=== PATIENT | female | born 1945 | race Caucasian/White ===

== ENCOUNTER 2020-12-30 18:29 | Emergency (ER) | payer MEDICARE ==
[2020-12-30] MEDS ORDERED: HYDROmorphone 1 MG/ML CARPUJECT IVP STA (18:51)
--- NOTE | 2020-12-30 18:55 | ED Physician Documentation ---
History of Present Illness - Stated complaint Stated Complaint: BACK PX - Chief complaint Chief Complaint: Back Pain - Additonal information Additional information: 75-year-old female presents emergency department with 3 days of acute mid tho racic back pain that was unprovoked by fall or trauma. She does report a history of low back pain but nothing similar to this. She reports that the pain radiates across her back and into the anterior chest, Tylenol as well as Percocet with minimal relief of the pain. she denies shortness of breath. She has been taking ibuprofen, tylenol and percocet with minimal relief of pain. Patient reports that with certain movements she feels a sharp pain that then begins to spasm across her entire back with radiation to the chest. Patient reports that she is taking the Percocet because she had a number of teeth extracted 4 days ago. No cough, no fevers, no falls or trauma. No peluritic component to pain pmh: HTN, depression meds: Sertraline, bupropion, omeprazole, hydrochlorothiazide, lisinopril, Percocet, ibuprofen. Review of Systems Constitutional: denies: Fever, Chills Eyes: reports: Reviewed and negative Ears: reports: Reviewed and negative Nose: reports: Reviewed and negative Throat: reports: Dental pain / toothache (recent dental extractions) Cardiac: denies: Chest pain / pressure, Palpitations, Pedal edema, Calf pain Respiratory: denies: Dyspnea, Cough GI: denies: Abdominal Pain, Nausea, Vomiting : denies: Dysuria, Frequency, Hesitancy Skin: denies: Rash, Lesions Musculoskeletal: reports: Back pain Neurologic: denies: Generalized weakness, Focal weakness, Numbness, Difficulty speaking, Syncope, Seizure, Confused, Head injury, LOC PD PAST MEDICAL HISTORY - Past Medical History Cardiovascular: None Respiratory: None Neuro: None Endocrine/Autoimmune: None GI: None 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 HEENT: None Psych: Depression Musculoskeletal: None Derm: None - Past Surgical History Past Surgical History: Yes - Present Medications Home Medications: Ambulatory Orders Medication Instructions Recorded Confirmed Hydrochlorothiazide 12/17/14 12/17/14 Lisinopril [Prinivil] 10 mg PO DAILY #30 tablet 04/19/20 Ibuprofen [Motrin] 600 mg PO Q6H PRN #30 tab 12/30/20 Omeprazole Magnesium 20 mg PO DAILY 12/30/20 12/30/20 Oxycodone HCl/Acetaminophen 1 - 2 each PO Q6H PRN #14 tab 12/30/20 [Percocet 5-325 mg Tablet] Sertraline HCl 150 mg PO DAILY 12/30/20 12/30/20 Tizanidine HCl [Zanaflex] 2 mg ORAL DAILY PRN 12/30/20 12/30/20 Tizanidine HCl [Zanaflex] 2 mg PO BID PRN #15 12/30/20 buPROPion HCL [Bupropion HCl Sr] 150 mg PO BID 12/30/20 12/30/20 - Allergies Allergies/Adverse Reactions: Allergies Allergy/AdvReac Type Severity Reaction Status Date / Time adhesive Allergy Rash Verified 12/30/20 18:31 Penicillins Allergy Hives Verified 12/30/20 18:31 - Social History Does the pt smoke?: Yes Smoking Status: Current every day smoker Does the pt drink ETOH?: Yes - Immunizations Immunizations are current?: Yes PD ED PE EXPANDED - General General: Alert, Anxious, In Pain - Neck Neck: Supple w/out meningeal sx. No: Adenopathy, Soft tissue TTP, Bony TTP, Limited ROM - Cardiac Cardiac: Regular Rate, Regular Rhythm, Radial strong equal, Pedal strong equal, Cap refill < 2 sec. No: Murmur Present - Respiratory Respiratory: Clear to ausultation nikki. No: Distress, Labored - Abdomen Abdomen: Normal Bowel sounds. No: Tender to palpation - Back Back: Vertebral tenderness (Lower midline thoracic spinous tenderness without crepitus erythema. no steopoff, no deformity. Reduced range of motion secondary to pain. Patient able to take full deep breaths normal cardiopulmonary excursion.). No: CVA TTP right, CVA TTP left - Derm Derm: Normal color, Warm and dry. No: Rash, Petecchiae, Purpura - Neuro Neuro: Alert and Oriented X 3, CNII-XII intact - GCS Eye Opening: Spontaneous Motor: Obeys Commands Verbal: Oriented Total: 15 Results - Vitals Vitals: Vital Signs - 24 hr 12/30/20 18:31 Temperature 36.5 C Heart Rate 90 Respiratory 16 Rate Blood Pressure 138/100 H O2 Saturation 100 Oxygen O2 Source Room air - EKG (time done) 1854 Rate: Rate (enter#) (83) Rhythm: NSR [place]: Normal Intervals: Normal VT QRS: LVH Ischemia: Normal ST segments Compare to prior EKG: Old EKG unavailable Computer interpretation: Agree with computer - Labs Labs: Laboratory Tests 12/30/20 12/30/20 12/30/20 19:01 19:01 19:01 WBC 7.0 RBC 3.38 L Hgb 11.3 L Hct 35.0 L MCV 103.6 H MCH 33.4 H MCHC 32.3 RDW 12.1 Plt Count 331 MPV 9.9 Neut # (Auto) 4.9 Lymph # (Auto) 1.2 L [place] # (Auto) 0.7 Eos # (Auto) 0.2 Baso # (Auto) 0.1 Absolute Nucleated RBC 0.00 Nucleated RBC % 0.0 Sodium 135 Potassium 4.5 Chloride 97 L Carbon Dioxide 29 Anion Gap 9.0 BUN 32 H Creatinine 1.4 H Estimated GFR (MDRD) 37 L Glucose 114 H Calcium 9.8 Total Bilirubin 0.5 AST 18 ALT 14 Alkaline Phosphatase 89 Troponin I High Sens 5.0 Total Protein 6.5 L Albumin 4.2 Globulin 2.3 Albumin/Globulin Ratio 1.8 Lipase 28 - Rads (name of study) CXR Radiology: Final report received (No acute cardiopulmonary process) CT thoracic spine Radiology: Final report received PD MEDICAL DECISION MAKING - ED course Complexity details: reviewed results, re-evaluated patient, considered differential, d/w patient ED course: 75-year-old female presents to the emergency department for evaluation of 3 days mid thoracic back pain that radiates to her anterior chest. No cough or fevers. Chest x-ray shows no acute focal abnormality. She denies a pleuritic component to the chest pain. EKG nonischemic. High-sensitivity troponin also negative. Low suspicion for ACS. She denied any falls or trauma but pain was reproducible with palpation of the mid thoracic spine. A CT of the thoracic spine was completed and it does show anterior wedge compression fractures at T9 and L1. Undetermined age. Findings were discussed with the patient. Her pain is improved following 1.5 mg of Dilaudid IM here in the emergency department. Patient will be discharged with a prescription for ibuprofen, limited amount of Percocet as well as a pr escription for tizanidine. She is recommended to follow-up closely with her primary care provider. Referral to spine physiatry or evaluation for vertebral plasty in the future may be warranted. Patient reports primary care providers through the [facility] and she feels comfortable with follow-up there. Emergent return precautions were discussed. Departure - Departure Disposition: 01 Home, Self Care Clinical Impression: Wedge compression fracture of T9 vertebra Qualifiers: Encounter type: initial encounter Fracture type: closed Qualified Code(s): S22.070A - Wedge compression fracture of T9-T10 vertebra, initial encounter for closed fracture Wedge compression fracture of L1 vertebra Qualifiers: Encounter type: initial encounter Fracture type: closed Qualified Code(s): S32.010A - Wedge compression fracture of first lumbar vertebra, initial encounter for closed fracture Condition: Stable Record reviewed to determine appropriate education?: Yes Instructions: ED Fx Comp Vertebral Follow-Up: Samuel Diego MD [Primary Care Provider] - Prescriptions: Ibuprofen [Motrin] 600 mg PO Q6H PRN #30 tab PRN Reason: Pain Oxycodone HCl/Acetaminophen [Percocet 5-325 mg Tablet] 1 - 2 each PO Q6H PRN #14 tab PRN Reason: pain Tizanidine HCl [Zanaflex] 2 mg PO BID PRN #15 PRN Reason: Spasms Comments: Kristin you were seen for back pain today in the emergency department. Your EKG, chest x-ray and labs are all essentially unremarkable. We did do a CAT scan of your thoracic spine and did find that at T9 and L1 you do have small compression fractures. We are unable to determine from this imaging how old these are. It is important that you continue to follow-up with your primary care doctors at the [facility]. You may benefit from referral to a doctor or surgeon. I have prescribed a limited amount of Percocet for pain. I have also prescribed tizanidine which is a muscle relaxer. Please use both these medications very cautiously. They may make you dizzy sleepy and more prone to falls. Please drink a wall a lot of water when taking them as they are also constipating. Return to the emergency department if you have falls, weakness in your arms or legs cannot catch her breath or feel that the pain is worsening.
[2020-12-30] MEDS ORDERED: HYDROmorphone 1 MG/ML CARPUJECT IM STA ×2 (18:58→19:29)
[2020-12-30 19:10] LABS: BASOPHILS # (AUTO) 0.1 10^3/uL (0.0-0.1); EOSINOPHILS # (AUTO) 0.2 10^3/uL (0.0-0.7); EOSINOPHILS % (AUTO) 2.6 %; HGB - HEMOGLOBIN 11.3 g/dL (12.0-16.0); LYMPHOCYTES # (AUTO) 1.2 10^3/uL (1.5-3.5); LYMPHOCYTES % (AUTO) 16.5 %; MEAN CORPUSCULAR HEMOGLOBIN 33.4 pg (27.0-31.0); MEAN CORPUSCULAR HGB CONC 32.3 g/dL (32.0-36.0); MEAN CORPUSCULAR VOLUME 103.6 fL (81.0-99.0); MEAN PLATELET VOLUME 9.9 fL (7.9-10.8); MONOCYTES # (AUTO) 0.7 10^3/uL (0.0-1.0); MONOCYTES % (AUTO) 10.5 %; NEUTROPHILS # (AUTO) 4.9 10^3/uL (1.5-6.6); NEUTROPHILS % (AUTO) 69.1 %; PLT - PLATELET COUNT 331 10^3/uL (130-450); RED BLOOD COUNT 3.38 10^6/uL (4.20-5.40); RED CELL DISTRIBUTION WIDTH 12.1 % (12.0-15.0)
--- NOTE | 2020-12-30 19:28 | XRAY Report ---
PROCEDURE: Chest 1 View X-Ray INDICATIONS: chest pain TECHNIQUE: One view of the chest was acquired. COMPARISON: None. FINDINGS: Surgical changes and devices: None. Lungs and pleura: No pleural effusions or pneumothorax. Lungs are clear except for minimal intersti tial prominence. Mediastinum: Mediastinal contours appear normal. Heart size is normal. Bones and chest wall: No suspicious bony lesions. Overlying soft tissues appear unremarkable. IMPRESSION: No source of chest pain is seen. Minimal interstitial prominence incidentally noted. Reviewed by: Domingo Goodrich MD on 12/30/2020 7:27 PM PST Approved by: Domingo Goodrich MD on 12/30/2020 7:27 PM PST Station ID: [id number]
--- NOTE | 2020-12-30 19:35 | CT Report ---
PROCEDURE: THORACIC SPINE WO INDICATIONS: acute mid back pain TECHNIQUE: Noncontrast 3 mm thick sections acquired through the region of interest in the thoracic spine. Sagit natalya and coronal reformats were then constructed. For radiation dose reduction, the following was used : automated exposure control, adjustment of mA and/or kV according to patient size. COMPARISON: None. FINDINGS: Image quality: Excellent. Bones: There is mildly kyphotic bony alignment, in addition to mild scoliosis at the thoracolumbar j unction. A prior anterior fusion plate is noted at the low cervical spine.. No definite acute verteb ral body compression fractures but there is a small degree of anterior wedging of the T9 and L1 verte bral bodies. No suspicious sclerotic or lytic bony lesions. Central spinal canal is of normal overa ll caliber. Soft tissues: No paravertebral masses or hematomas. Visualized posteromedial lungs appear clear. IMPRESSION: Minimal T9 and mild L1 anterior wedge compression fractures, chronicity uncertain. No sign of disciti s or osteomyelitis. No displaced fracture found. 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 Reviewed by: Domingo Goodrich MD on 12/30/2020 7:33 PM PST Approved by: Domingo Goodrich MD on 12/30/2020 7:33 PM PST Station ID: [id number]
[2020-12-30 19:37] LABS: ALBUMIN 4.2 g/dL (3.2-5.5); ALBUMIN/GLOBULIN RATIO 1.8 (1.0-2.2); BILIRUBIN,TOTAL 0.5 mg/dL (0.2-1.0); CALCIUM 9.8 mg/dL (8.5-10.3); CREATININE 1.4 mg/dL (0.4-1.0); TOTAL PROTEIN 6.5 g/dL (6.7-8.2)
[2020-12-30 20:08] VITALS: BP 153/62
== END 2020-12-30 20:48 | disposition home or self-care (01) ==
LOC: ED 18:29
DX: S22.070A Wedge compression fracture of T9-T10 vertebra, initial encounter for closed fracture (principal); S32.010A Wedge compression fracture of first lumbar vertebra, initial encounter for closed fracture; X58.XXXA Exposure to other specified factors, initial encounter; I10 Essential (primary) hypertension; F17.200 Nicotine dependence, unspecified, uncomplicated
CPT/HCPCS: 36415; 71045; 72128; 80053; 83690; 84484; 85025; 93005; 96372; 99284; J1170

== ENCOUNTER 2021-01-06 12:04 | Emergency (ER) | payer MEDICARE ==
--- NOTE | 2021-01-06 12:41 | ED Physician Documentation ---
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 She was actually seen for it but a week ago but the work-up was really more on her back them on her abdomen because that is where the pain was focused then. Now it is definitely more epigastric and radiating to either side. It does worsen shortly after eating but she does not notice any specific food that makes it worse. She has had nausea and diarrhea with this as well. She wonders if her H. pylori might be back. She is on Prilosec, 20 mg twice a day. 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 HEENT: None Psych: Depression Musculoskeletal: None Derm: None - Past Surgical History Past Surgical History: Yes - Present Medications Home Medications: Ambulatory Orders Medication Instructions Recorded Confirmed Hydrochlorothiazide 25 mg PO DAILY 12/17/14 01/06/21 Lisinopril [Prinivil] 10 mg PO DAILY #30 tablet 04/19/20 01/06/21 Ibuprofen [Motrin] 600 mg PO Q6H PRN #30 tab 12/30/20 01/06/21 Omeprazole Magnesium 20 mg PO DAILY 12/30/20 01/06/21 Oxycodone HCl/Acetaminophen 1 - 2 each PO Q6H PRN #14 tab 12/30/20 01/06/21 [Percocet 5-325 mg Tablet] Sertraline HCl 150 mg PO DAILY 12/30/20 01/06/21 Tizanidine HCl [Zanaflex] 2 mg ORAL DAILY PRN 12/30/20 01/06/21 Tizanidine HCl [Zanaflex] 2 mg PO BID PRN #15 12/30/20 01/06/21 buPROPion HCL [Bupropion HCl Sr] 150 mg PO BID 12/30/20 01/06/21 ARIPiprazole [Abilify Mycite] 1 tab PO DAILY 01/06/21 01/06/21 Bismuth Subsalicylate 262 mg PO QID 14 Days #56 tab.chew 01/06/21 [Pepto-Bismol] Oxycodone HCl/Acetaminophen 1 - 2 each PO Q6H PRN #20 tab 01/06/21 [Percocet 5-325 mg Tablet] Tetracycline HCl 500 mg PO QID 14 Days 01/06/21 metroNIDAZOLE [Flagyl] 250 mg PO Q6H 14 Days 01/06/21 - Allergies Allergies/Adverse Reactions: Allergies Allergy/AdvReac Type Severity Reaction Status Date / Time adhesive Allergy Rash Verified 01/06/21 12:18 Penicillins Allergy Hives Verified 01/06/21 12:18 - Social History Does the pt smoke?: Yes Smoking Status: Current every day smoker Does the pt drink ETOH?: Yes Does the pt have substance abuse?: No - Immunizations Immunizations are current?: Yes - POLST Patient has POLST: No PD ED PE NORMAL - Vitals Vital signs reviewed: Yes - General General: Alert and oriented X 3, No acute distress - HEENT HEENT: PERRL, EOMI - Neck Neck: Supple, no meningeal sign, No bony TTP - Cardiac Cardiac: RRR, No murmur - Respiratory Respiratory: No respiratory distress, Clear bilaterally - Abdomen Abdomen: Other (She is tender in the epigastrium and left upper quadrant without surgical signs) - Back Back: No CVA TTP, No spinal TTP - Derm Derm: Normal color, Warm and dry - Extremities Extremities: No edema, No calf tenderness / cord - Neuro Neuro: Alert and oriented X 3, Normal speech Results - Vitals Vitals: Vital Signs - 24 hr 01/06/21 01/06/21 12:13 13:51 Temperature 36.6 C Heart Rate 82 82 Respiratory 20 24 Rate Blood Pressure 107/65 144/70 H O2 Saturation 100 99 Oxygen O2 Source Room air - EKG (time done) 1239 Rate: Rate (enter#) (73) Rhythm: NSR [place]: Normal Intervals: Normal [place] QRS: Normal Ischemia: Other (mild anterior JPE with concave sub-mm SHAHRAM). No: ST elevation c/w ischemia Computer interpretation: Agree with computer - Labs Labs: Laboratory Tests 01/06/21 01/06/21 01/06/21 12:45 12:45 12:45 WBC 5.8 RBC 3.02 L Hgb 10.2 L Hct 31.2 L MCV 103.3 H MCH 33.8 H MCHC 32.7 RDW 11.9 L Plt Count 320 MPV 9.8 Neut # (Auto) 4.3 Lymph # (Auto) 0.8 L [place] # (Auto) 0.5 Eos # (Auto) 0.2 Baso # (Auto) 0.1 Absolute Nucleated RBC 0.00 Nucleated RBC % 0.0 Sodium 140 Potassium 4.3 Chloride 100 L Carbon Dioxide 27 Anion Gap 13.0 BUN 32 H Creatinine 1.6 H Estimated GFR (MDRD) 32 L Glucose 99 Calcium 9.8 Total Bilirubin 0.5 AST 20 ALT 12 Alkaline Phosphatase 62 Troponin I High Sens 5.3 Total Protein 6.6 L Albumin 3.9 Globulin 2.7 Albumin/Globulin Ratio 1.4 Lipase 21 L PD MEDICAL DECISION MAKING - ED course ED course: 75-year-old woman with epigastric pain radiating to the back. Differential diagnosis is broad. Ulcer disease and H. pylori are definitely on the list. Gallbladder disease is less likely, no focal right upper quadrant tenderness or Garcia sign. Vascular emergencies are on the list including AAA and dissection. More likely AAA given the location. Also atypical CA is considered. Will obtain IV access, labs including troponin and a CT of the abdomen with IV contrast. She declines pain medication on initial evaluation. Work-up here demonstrates modest anemia, a little worse than last week, mild renal dysfunction. Basically negative CAT scan. Presume peptic ulcer disease and potentially recurrent H. pylori. She would like to go ahead with presumptive treatment for same. Noting penicillin allergy she was started on bismuth based quadruple therapy and advised to follow-up with a surgeon for reevaluation and potential endoscopy. Departure - Departure Disposition: 01 Home, Self Care Clinical Impression: Abdominal pain Qualifiers: Abdominal location: epigastric Qualified Code(s): R10.13 - Epigastric pain Instructions: ED Abdominal Pain Unkn Cause, ED PUD Vs Gastritis, ED Peptic Ulcer H Pylori Infec Follow-Up: Van Jiménez MD [Provider Admit Priv/Credential] - Prescriptions: metroNIDAZOLE [Flagyl] 250 mg PO Q6H 14 Days Bismuth Subsalicylate [Pepto-Bismol] 262 mg PO QID 14 Days #56 tab.chew Oxycodone HCl/Acetaminophen [Percocet 5-325 mg Tablet] 1 - 2 each PO Q6H PRN #20 tab PRN Reason: pain Tetracycline HCl 500 mg PO QID 14 Days Comments: As discussed, the CAT scan does not show any particular reason for your pain. It does appear you have some slow blood loss based on serial labs, not alarming at this juncture. We are treating you for presumed H. pylori given that you have had this recurrently in the past. Also some pain medication. Continue your Prilosec twice a day. Follow-up with the surgeon listed on this form for consideration for endoscopy. Return if worse.
[2021-01-06] MEDS ORDERED: IOVERSOL 320 100 ML VIAL IVP ONE ×2 (12:58→14:09)
[2021-01-06 13:00] LABS: BASOPHILS # (AUTO) 0.1 10^3/uL (0.0-0.1); BASOPHILS % (AUTO) 0.9 %; EOSINOPHILS # (AUTO) 0.2 10^3/uL (0.0-0.7); EOSINOPHILS % (AUTO) 2.6 %; HCT - HEMATOCRIT 31.2 % (37.0-47.0); HGB - HEMOGLOBIN 10.2 g/dL (12.0-16.0); LYMPHOCYTES # (AUTO) 0.8 10^3/uL (1.5-3.5); LYMPHOCYTES % (AUTO) 14.3 %; MEAN CORPUSCULAR HEMOGLOBIN 33.8 pg (27.0-31.0); MEAN CORPUSCULAR HGB CONC 32.7 g/dL (32.0-36.0); MEAN CORPUSCULAR VOLUME 103.3 fL (81.0-99.0); MEAN PLATELET VOLUME 9.8 fL (7.9-10.8); MONOCYTES # (AUTO) 0.5 10^3/uL (0.0-1.0); MONOCYTES % (AUTO) 7.9 %; NEUTROPHILS # (AUTO) 4.3 10^3/uL (1.5-6.6); PLT - PLATELET COUNT 320 10^3/uL (130-450); RED BLOOD COUNT 3.02 10^6/uL (4.20-5.40); RED CELL DISTRIBUTION WIDTH 11.9 % (12.0-15.0); WHITE BLOOD COUNT 5.8 x10^3/uL (4.8-10.8)
[2021-01-06 13:14] LABS: ALBUMIN 3.9 g/dL (3.2-5.5); ALBUMIN/GLOBULIN RATIO 1.4 (1.0-2.2); BILIRUBIN,TOTAL 0.5 mg/dL (0.2-1.0); CALCIUM 9.8 mg/dL (8.5-10.3); CREATININE 1.6 mg/dL (0.4-1.0); POTASSIUM 4.3 mmol/L (3.5-5.0); TOTAL PROTEIN 6.6 g/dL (6.7-8.2)
[2021-01-06 13:52] VITALS: BP 144/70
--- NOTE | 2021-01-06 14:37 | CT Report ---
PROCEDURE: Abdomen/Pelvis W INDICATIONS: IV only, upper abd pain CONTRAST: IV CONTRAST: Optiray 320 ml: 100 PO CONTRAST: *NO PO CONTRAST TECHNIQUE: After the administration of intravenous contrast, 5 mm thick sections acquired from the diaphragms to the symphysis. 5 mm thick coronal and sagittal reformats were acquired. For radiation dose reducti on, the following was used: automated exposure control, adjustment of mA and/or kV according to jeffery ent size. COMPARISON: None. FINDINGS: Image quality: Excellent. ABDOMEN: Lung bases: Lung bases are clear. Heart size is normal. Solid organs: No acute finding or discrete mass lesion of the liver, spleen, pancreas, gallbladder, a drenal glands, or kidneys. Peritoneum and bowel: There is a small hiatal hernia repair. Surgical clips near the proximal stomach presumably reflect changes of either prior hiatal hernia repair or perhaps a sleeve gastrectomy. No abnormally dilated or thickened loops of bowel. Large volume of formed stool throughout the colon ref lective of constipation. Scattered sigmoid diverticula with no findings of diverticulitis. Nodes and vessels: No retroperitoneal or mesenteric adenopathy by size criteria. Extensive aortic at herosclerosis. Aorta and inferior vena cava are normal in size. Miscellaneous: No ventral hernias. PELVIS: Genitourinary: Bladder wall thickness is normal. Miscellaneous: No inguinal hernias or adenopathy. Bones: No suspicious bony lesions. No vertebral body compression fractures. Postsurgical changes o f L2-L3 interbody fixation. Remote L1 compression fracture. IMPRESSION: No acute finding to explain abdominal pain. Small hiatal hernia. Nonspecific postoperative changes of the proximal stomach. Reviewed by: Yvan Johnson MD on 01/06/2021 2:35 PM PST Approved by: Yvan Johnson MD on 01/06/2021 2:35 PM PST Station ID: [id number]
[2021-01-06] MEDS ORDERED: oxyCODONE 5 MG TABLET PO STA (14:42)
== END 2021-01-06 15:00 | disposition home or self-care (01) ==
LOC: ED 12:04
DX: R10.13 Epigastric pain (principal); D64.9 Anemia, unspecified; N28.9 Disorder of kidney and ureter, unspecified; F17.200 Nicotine dependence, unspecified, uncomplicated
CPT/HCPCS: 36415; 74177; 80053; 83690; 84484; 85025; 93005; 99284; A9270; Q9967

== ENCOUNTER 2021-01-25 17:23 | Outpatient (CLI) | payer OTHER, MEDICARE | END 2021-01-25 17:24 | disposition critical access hospital (66) | LOC: EMS 17:23 | PROVIDERS: ATTEND Emergency Medicine | DX: R07.9 Chest pain, unspecified (principal) | CPT/HCPCS: A0425; A0427 ==

== ENCOUNTER 2021-01-25 17:31 | Emergency (ER) | payer OTHER, MEDICARE ==
[2021-01-25 18:18] LABS: BASOPHILS # (AUTO) 0.1 10^3/uL (0.0-0.1); BASOPHILS % (AUTO) 0.9 %; EOSINOPHILS # (AUTO) 0.1 10^3/uL (0.0-0.7); EOSINOPHILS % (AUTO) 1.1 %; HCT - HEMATOCRIT 34.6 % (37.0-47.0); HGB - HEMOGLOBIN 11.1 g/dL (12.0-16.0); LYMPHOCYTES # (AUTO) 0.9 10^3/uL (1.5-3.5); LYMPHOCYTES % (AUTO) 7.9 %; MEAN CORPUSCULAR HEMOGLOBIN 33.6 pg (27.0-31.0); MEAN CORPUSCULAR HGB CONC 32.1 g/dL (32.0-36.0); MEAN CORPUSCULAR VOLUME 104.8 fL (81.0-99.0); MEAN PLATELET VOLUME 9.8 fL (7.9-10.8); MONOCYTES # (AUTO) 0.9 10^3/uL (0.0-1.0); MONOCYTES % (AUTO) 7.4 %; NEUTROPHILS # (AUTO) 9.5 10^3/uL (1.5-6.6); NEUTROPHILS % (AUTO) 81.7 %; PLT - PLATELET COUNT 280 10^3/uL (130-450); RED CELL DISTRIBUTION WIDTH 12.4 % (12.0-15.0); WHITE BLOOD COUNT 11.6 x10^3/uL (4.8-10.8)
[2021-01-25 18:31] LABS: ALBUMIN 4.2 g/dL (3.2-5.5); ALBUMIN/GLOBULIN RATIO 1.8 (1.0-2.2); BILIRUBIN,TOTAL 0.6 mg/dL (0.2-1.0); CALCIUM 9.5 mg/dL (8.5-10.3); CREATININE 1.7 mg/dL (0.4-1.0); POTASSIUM 4.9 mmol/L (3.5-5.0); TOTAL PROTEIN 6.5 g/dL (6.7-8.2)
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
[2021-01-25] MEDS ORDERED: IOVERSOL 320 100 ML VIAL IVP ONE ×2 (18:36→19:13)
[2021-01-25] MEDS ORDERED: MORPHINE 2 MG/ML CARPUJECT IVP STA (18:37)
[2021-01-25] MEDS ORDERED: SODIUM CHLORIDE 0.9% 1,000 ML IV STA ×2 (18:39)
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
[2021-01-25] MEDS ORDERED: HYDROmorphone 1 MG/ML CARPUJECT IVP STA ×2 (20:27→21:44)
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
[2021-01-25 21:06] LABS: BILIRUBIN,URINE NEGATIVE (NEGATIVE); GLUCOSE, URINE (UA) NEGATIVE (NEGATIVE); KETONES,URINE (UA) NEGATIVE (NEGATIVE); LEUKOCYTE ESTERASE, URINE SMALL (NEGATIVE); NITRITE,URINE NEGATIVE (NEGATIVE); OCCULT BLOOD,URINE NEGATIVE (NEGATIVE); PH,URINE 5.5 PH (5.0-7.5); PROTEIN,URINE NEGATIVE (NEGATIVE); UROBILINOGEN,URINE 0.2 (NORMAL) E.U./dL (NORMAL)
[2021-01-25 21:08] LABS: CLARITY,URINE HAZY (CLEAR)
[2021-01-25 21:16] LABS: BACTERIA,URINE Few /HPF (None Seen); RBC,URINE 0-5 /HPF (0-5); SQUAMOUS EPITHELIAL CELL,UR FEW Squamous (<= Few)
[2021-01-25 21:33] LABS: B. PARAPERTUSSIS- RESP PCR PAN NOT DETECTED; B. PERTUSSIS- RESP PCR PANEL NOT DETECTED; C. PNEUMONIAE- RESP PCR PANEL NOT DETECTED; CORONAVIRUS 229E-RESP PCR NOT DETECTED; CORONAVIRUS HKU1-RESP PCR NOT DETECTED; CORONAVIRUS NL63-RESP PCR NOT DETECTED; CORONAVIRUS OC43-RESP PCR NOT DETECTED; HUMAN METAPNEUMOVIRUS NOT DETECTED; INFLUENZA A- RESP PCR PANEL NOT DETECTED; INFLUENZA B - RESP PCR PANEL NOT DETECTED; M. PNEUMONIAE- RESP PCR PANEL NOT DETECTED; PARAINFLUENZA VIRUS 1 NOT DETECTED; PARAINFLUENZA VIRUS 2 NOT DETECTED; PARAINFLUENZA VIRUS 3 NOT DETECTED; PARAINFLUENZA VIRUS 4 NOT DETECTED; RHINOVIRUS/ENTEROVIRUS NOT DETECTED; RSV- RESP PCR PANEL NOT DETECTED; SARS-CoV-2 -RESP PCR PANEL NOT DETECTED
[2021-01-25 21:53] VITALS: BP 131/63
== END 2021-01-25 21:55 | disposition short-term general hospital (02) ==
LOC: EDUNIT# → ED 17:31 → SUPCPDRO 17:31 → ED 21:55
DX: S22.21XA Fracture of manubrium, initial encounter for closed fracture (principal); S22.43XA Multiple fractures of ribs, bilateral, initial encounter for closed fracture; V48.5XXA Car driver injured in noncollision transport accident in traffic accident, initial encounter; F17.200 Nicotine dependence, unspecified, uncomplicated; Z20.822 Contact with and (suspected) exposure to COVID-19
CPT/HCPCS: 0202U; 36415; 70450; 71045; 71260; 72125; 74177; 80053; 81001; 85025; 87086; 96374; 96375; 96376; 99285; J1170; Q9967; 81003; 87077; 87181

== ENCOUNTER 2021-01-25 21:57 | Outpatient (CLI) | payer MEDICARE | END 2021-01-25 21:58 | disposition short-term general hospital (02) | LOC: EMS 21:57 | PROVIDERS: ATTEND Emergency Medicine | DX: S22.20XA Unspecified fracture of sternum, initial encounter for closed fracture (principal); S22.49XA Multiple fractures of ribs, unspecified side, initial encounter for closed fracture; V89.2XXA Person injured in unspecified motor-vehicle accident, traffic, initial encounter; Y93.89 Activity, other specified; Y92.410 Unspecified street and highway as the place of occurrence of the external cause | CPT/HCPCS: A0425; A0426 ==

== ENCOUNTER 2021-03-10 19:13 | Emergency (ER) | payer MEDICARE ==
[2021-03-10 19:38] LABS: BASOPHILS # (AUTO) 0.1 10^3/uL (0.0-0.1); BASOPHILS % (AUTO) 1.4 %; EOSINOPHILS # (AUTO) 0.1 10^3/uL (0.0-0.7); EOSINOPHILS % (AUTO) 1.9 %; HCT - HEMATOCRIT 39.5 % (37.0-47.0); HGB - HEMOGLOBIN 12.8 g/dL (12.0-16.0); MEAN CORPUSCULAR HEMOGLOBIN 32.3 pg (27.0-31.0); MEAN CORPUSCULAR HGB CONC 32.4 g/dL (32.0-36.0); MEAN CORPUSCULAR VOLUME 99.7 fL (81.0-99.0); MONOCYTES # (AUTO) 0.7 10^3/uL (0.0-1.0); MONOCYTES % (AUTO) 10.6 %; NEUTROPHILS # (AUTO) 4.5 10^3/uL (1.5-6.6); NEUTROPHILS % (AUTO) 69.9 %; PLT - PLATELET COUNT 397 10^3/uL (130-450); RED BLOOD COUNT 3.96 10^6/uL (4.20-5.40); RED CELL DISTRIBUTION WIDTH 12.5 % (12.0-15.0); WHITE BLOOD COUNT 6.4 x10^3/uL (4.8-10.8)
[2021-03-10 19:51] LABS: ALBUMIN 4.4 g/dL (3.2-5.5); ALBUMIN/GLOBULIN RATIO 1.5 (1.0-2.2); BILIRUBIN,TOTAL 0.8 mg/dL (0.2-1.0); CALCIUM 10.1 mg/dL (8.5-10.3); CREATININE 1.5 mg/dL (0.4-1.0); TOTAL PROTEIN 7.4 g/dL (6.7-8.2)
[2021-03-10] MEDS ORDERED: ONDANSETRON 4 MG/2 ML VIAL IVP STA ×2 (20:58→23:23)
[2021-03-10 21:40] LABS: GLUCOSE, URINE (UA) NEGATIVE (NEGATIVE); KETONES,URINE (UA) 15 mg/dL (NEGATIVE); LEUKOCYTE ESTERASE, URINE SMALL (NEGATIVE); NITRITE,URINE NEGATIVE (NEGATIVE); OCCULT BLOOD,URINE NEGATIVE (NEGATIVE); PH,URINE 5.5 PH (5.0-7.5); PROTEIN,URINE TRACE mg/dL (NEGATIVE); UROBILINOGEN,URINE 0.2 (NORMAL) E.U./dL (NORMAL)
[2021-03-10] MEDS ORDERED: SODIUM CHLORIDE 0.9% 1,000 ML IV STA (21:42)
[2021-03-10 21:46] LABS: BILIRUBIN,URINE NEGATIVE (NEGATIVE); CLARITY,URINE HAZY (CLEAR); ICTOTEST,URINE NEGATIVE
[2021-03-10 21:50] LABS: BACTERIA,URINE Moderate /HPF (None Seen); RBC,URINE 0-5 /HPF (0-5); SQUAMOUS EPITHELIAL CELL,UR FEW Squamous (<= Few)
[2021-03-10] MEDS ORDERED: FAMOTIDINE 20 MG/2 ML VIAL IVP STA (23:23)
--- NOTE | 2021-03-10 23:25 | ED Physician Documentation ---
History of Present Illness - Stated complaint Stated Complaint: VOMITING,DEHYDRATION - Chief complaint Chief Complaint: Abd Pain - History obtained from History obtained from: Patient - Additonal information Additional information: 75-year-old woman with past medical history of partial gastrectomy Complicated by multiple H pylori infections presents with nausea and vomiting progressive over the past 4 days with inability to tolerate oral. Patient is also with constant cramping epigastric pain that is nonradiating, moderate severity, worse with attempting to drink water, gradual in onset. She denies fever, back pain, chest pain shortness of breath or urinary symptoms. 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 : None HEENT: None Psych: Depression Musculoskeletal: None Derm: Herpes zoster Other Past Medical History: seizures with abilify - Past Surgical History Past Surgical History: Yes /WELFARE PROJECT MANAGER: Hysterectomy, Oophrectomy - Present Medications Home Medications: Ambulatory Orders Medication Instructions Recorded Confirmed Lisinopril [Prinivil] 10 mg PO DAILY #30 tablet 04/19/20 01/06/21 Omeprazole Magnesium 20 mg PO BID 12/30/20 01/06/21 Sertraline HCl 150 mg PO DAILY 12/30/20 01/06/21 buPROPion HCL [Bupropion HCl Sr] 150 mg PO BID 12/30/20 01/06/21 - Allergies Allergies/Adverse Reactions: Allergies Allergy/AdvReac Type Severity Reaction Status Date / Time adhesive Allergy Rash Verified 03/10/21 19:26 aripiprazole [From Abilify] Allergy Unknown Verified 03/10/21 19:26 Penicillins Allergy Hives Verified 03/10/21 19:26 - Social History Does the pt smoke?: No Smoking Status: Former smoker Does the pt drink ETOH?: No Does the pt have substance abuse?: No - Immunizations Immunizations are current?: No Immunizations: TDAP >10years/unknown - POLST Patient has POLST: No PD ED PE NORMAL - Vitals Vital signs reviewed: Yes - General General: Alert and oriented X 3, No acute distress, Well developed/nourished - HEENT HEENT: Atraumatic, PERRL, EOMI - Neck Neck: Supple, no meningeal sign - Cardiac Cardiac: RRR - Respiratory Respiratory: No respiratory distress, Clear bilaterally - Abdomen Abdomen: Other (epigastrium ttp) - Female Female : Deferred - Rectal Rectal: Deferred - Derm Derm: Normal color, Warm and dry - Extremities Extremities: No deformity - Neuro Neuro: Alert and oriented X 3 - Psych Psych: Normal mood, Normal affect Results - Vitals Vitals: Vital Signs - 24 hr 03/10/21 03/10/21 19:16 21:44 Temperature 36.4 C L Heart Rate 101 H 94 Respiratory 14 16 Rate Blood Pressure 149/75 H 127/77 O2 Saturation 100 97 Oxygen O2 Source Room air - Labs Labs: Laboratory Tests 03/10/21 03/10/21 03/10/21 19:33 19:33 21:30 WBC 6.4 RBC 3.96 L Hgb 12.8 Hct 39.5 MCV 99.7 H MCH 32.3 H MCHC 32.4 RDW 12.5 Plt Count 397 MPV 10.0 Neut # (Auto) 4.5 Lymph # (Auto) 1.0 L [place] # (Auto) 0.7 Eos # (Auto) 0.1 Baso # (Auto) 0.1 Absolute Nucleated RBC 0.00 Nucleated RBC % 0.0 Sodium 140 Potassium 4.0 Chloride 99 L Carbon Dioxide 28 Anion Gap 13.0 BUN 21 H Creatinine 1.5 H Estimated GFR (MDRD) 34 L Glucose 109 H Calcium 10.1 Total Bilirubin 0.8 AST 24 ALT 19 Alkaline Phosphatase 146 H Total Protein 7.4 Albumin 4.4 Globulin 3.0 Albumin/Globulin Ratio 1.5 Lipase 24 Urine Color YELLOW Urine Clarity HAZY Urine pH 5.5 Ur Specific [place] >=1.030 H Urine Protein TRACE Urine Glucose (UA) NEGATIVE Urine Ketones 15 H Urine Occult Blood NEGATIVE Urine Nitrite NEGATIVE Urine Bilirubin NEGATIVE Urine Urobilinogen 0.2 (NORMAL) Ur Leukocyte Esterase SMALL H Urine RBC 0-5 Urine WBC 11-25 H Ur Squamous Epith Cells FEW Squamous Urine Bacteria Moderate H Ur Microscopic Review INDICATED Urine Culture Comments INDICATED PD MEDICAL DECISION MAKING - ED course ED course: 75-year-old woman Presented with nausea, vomiting and epigastric pain, improved with Zofran and IV fluids initially but then unable to tolerate oral fluids. We redosed her Zofran and gave Pepcid and am ordering a CT of the abdomen pelvis. Endorsed to nighttime Dr. Marshall for further management and care.
[2021-03-11] MEDS ORDERED: LIDOCAINE VISCOUS 2% 15 ML UDC MM STA (00:41)
[2021-03-11] MEDS ORDERED: MAG HYDROX/AL HYDROX/SIMETH 30 ML UDC PO STA (00:41)
[2021-03-11] MEDS ORDERED: IOPAMIDOL-300 100 ML VIAL ONE (00:49)
[2021-03-11] MEDS ORDERED: IOPAMIDOL-300 100 ML VIAL IVP ONE (01:23)
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
[2021-03-11 03:05] VITALS: BP 135/63
--- NOTE | 2021-03-11 09:54 | CT Report ---
PROCEDURE: Abdomen/Pelvis W INDICATIONS: epigastric pain, hx gastrectomy CONTRAST: IV CONTRAST: Isovue 300 ml: 100 PO CONTRAST: *NO PO CONTRAST TECHNIQUE: After the administration of IV contrast, 5 mm thick sections acquired from the diaphragms to the symp hysis. 5 mm thick coronal and sagittal reformats were acquired. For radiation dose reduction, the f ollowing was used: automated exposure control, adjustment of mA and/or kV according to patient size. COMPARISON: CT abdomen pelvis 01/25/2021 FINDINGS: Image quality: Excellent. ABDOMEN: Lung bases: Lung bases are clear. Heart size is normal. Solid organs: Liver is enlarged with mild steatosis. Spleen is normal in size.. Gallbladder is unre markable Biliary system is non dilated. Pancreas enhances normally. Left adrenal gland thickening i s present, unchanged. Kidneys demonstrate normal size and enhancement, without hydronephrosis. Uncha nged low-attenuation focus within the superior right renal pole measuring 6 mm. Similar focus is note d on the right. Peritoneum and bowel: Bowel loops demonstrate normal wall thickness and caliber. No free fluid or a ir. Postsurgical stomach changes are noted. Nodes and vessels: No retroperitoneal or mesenteric zuri nopathy by size criteria. Aorta and inferior vena cava are normal in size. Miscellaneous: No ventral hernias. PELVIS: Genitourinary: Bladder wall thickness is normal. Miscellaneous: No inguinal hernias or adenopathy. Bones: No suspicious bony lesions. Vertebral body compression deformities at T9, T10 and T12, new. P ostsurgical changes are present at L2-3. IMPRESSION: 1. No acute intra-abdominal or pelvic process. 2. New compression deformities within the lower thoracic spine as above. 3. Subcentimeter low-attenuation focus within the superior left and right renal poles suggestive of s mall cysts. The above findings are concordant with preliminary report. Reviewed by: Dana Luther MD on 03/11/2021 9:53 AM PDT Approved by: Dana Luther MD on 03/11/2021 9:53 AM PDT Station ID: [id number]
== END 2021-03-11 03:22 | disposition home or self-care (01) ==
LOC: ED 19:13
DX: R10.10 Upper abdominal pain, unspecified (principal); R11.2 Nausea with vomiting, unspecified; E86.0 Dehydration; K29.00 Acute gastritis without bleeding; M48.54XD Collapsed vertebra, not elsewhere classified, thoracic region, subsequent encounter for fracture with routine healing; Z87.891 Personal history of nicotine dependence
CPT/HCPCS: 36415; 74177; 80053; 81001; 83690; 85025; 87086; 96374; 96375; 96376; 99284; A9270; Q9967; 81003

== ENCOUNTER 2021-05-03 14:07 | Outpatient (CLI) | payer MEDICARE ==
[2021-05-03 15:23] LABS: BASOPHILS # (AUTO) 0.1 10^3/uL (0.0-0.1); BASOPHILS % (AUTO) 1.4 %; EOSINOPHILS # (AUTO) 0.2 10^3/uL (0.0-0.7); EOSINOPHILS % (AUTO) 2.7 %; HCT - HEMATOCRIT 35.1 % (37.0-47.0); HGB - HEMOGLOBIN 11.4 g/dL (12.0-16.0); LYMPHOCYTES # (AUTO) 1.1 10^3/uL (1.5-3.5); LYMPHOCYTES % (AUTO) 18.9 %; MEAN CORPUSCULAR HEMOGLOBIN 31.8 pg (27.0-31.0); MEAN CORPUSCULAR HGB CONC 32.5 g/dL (32.0-36.0); MEAN CORPUSCULAR VOLUME 97.8 fL (81.0-99.0); MEAN PLATELET VOLUME 10.4 fL (7.9-10.8); MONOCYTES # (AUTO) 0.6 10^3/uL (0.0-1.0); MONOCYTES % (AUTO) 9.8 %; NEUTROPHILS # (AUTO) 3.9 10^3/uL (1.5-6.6); PLT - PLATELET COUNT 307 10^3/uL (130-450); RED BLOOD COUNT 3.59 10^6/uL (4.20-5.40); RED CELL DISTRIBUTION WIDTH 13.3 % (12.0-15.0); WHITE BLOOD COUNT 5.8 x10^3/uL (4.8-10.8)
[2021-05-03 15:26] LABS: BILIRUBIN,URINE NEGATIVE (NEGATIVE); GLUCOSE, URINE (UA) NEGATIVE (NEGATIVE); KETONES,URINE (UA) NEGATIVE (NEGATIVE); LEUKOCYTE ESTERASE, URINE NEGATIVE (NEGATIVE); NITRITE,URINE NEGATIVE (NEGATIVE); OCCULT BLOOD,URINE NEGATIVE (NEGATIVE); PH,URINE 5.5 PH (5.0-7.5); PROTEIN,URINE NEGATIVE (NEGATIVE); UROBILINOGEN,URINE 0.2 (NORMAL) E.U./dL (NORMAL)
[2021-05-03 15:37] LABS: CLARITY,URINE CLEAR (CLEAR)
[2021-05-03 15:54] LABS: MICROALBUM/CREATININE RATIO,UR 11.9 ug/mg (<30.0); MICROALBUMIN,URINE 2.3 mg/dL (0-300.0)
[2021-05-03 15:57] LABS: ALBUMIN 4.2 g/dL (3.2-5.5); BILIRUBIN,DIRECT 0.1 mg/dL (0.1-0.5); BILIRUBIN,TOTAL 0.6 mg/dL (0.2-1.0); MAGNESIUM 1.9 mg/dL (1.7-2.8); PHOSPHORUS 3.6 mg/dL (2.5-4.6); TOTAL PROTEIN 6.7 g/dL (6.7-8.2)
[2021-05-03 16:02] LABS: ALBUMIN 4.3 g/dL (3.2-5.5); ALBUMIN/GLOBULIN RATIO 1.7 (1.0-2.2); BILIRUBIN,TOTAL 0.6 mg/dL (0.2-1.0); CALCIUM 9.8 mg/dL (8.5-10.3); CREATININE 1.2 mg/dL (0.4-1.0); POTASSIUM 4.6 mmol/L (3.5-5.0); TOTAL PROTEIN 6.8 g/dL (6.7-8.2)
[2021-05-03 16:07] LABS: THYROID STIMULATING HORMONE 0.89 uIU/mL (0.34-5.60)
[2021-05-03 17:17] LABS: FOLATE > 49.60 ng/mL (5.90 - >24.8)
[2021-05-06 19:56] LABS: ALBUMIN 4.1 g/dL (3.8-4.8); ALPHA 1 GLOBULIN 0.4 g/dL (0.2-0.3); ALPHA 2 GLOBULIN 0.6 g/dL (0.5-0.9); BETA 1 GLOBULIN 0.5 g/dL (0.4-0.6); BETA 2 GLOBULIN 0.2 g/dL (0.2-0.5); GAMMA GLOBULIN 0.5 g/dL (0.8-1.7)
== END 2021-05-03 14:08 | disposition home or self-care (01) ==
LOC: LAB 14:07
PROVIDERS: ATTEND Internal Medicine Nephrology
DX: N18.31 Chronic kidney disease, stage 3a (principal); D64.9 Anemia, unspecified
CPT/HCPCS: 36415; 80048; 80053; 80076; 81001; 81003; 81599; 82043; 82248; 82306; 82310; 82570; 82607; 82610; 82746; 83540; 83735; 83970; 84100; 84155; 84165; 84443; 84466; 84550; 85025; 86335

== ENCOUNTER 2022-02-16 15:06 | Outpatient (CLI) | payer MEDICARE ==
[2022-02-16 18:54] LABS: ALBUMIN 4.4 g/dL (3.2-5.5); CALCIUM 10.1 mg/dL (8.5-10.3); CREATININE 1.3 mg/dL (0.4-1.0); PHOSPHORUS 3.9 mg/dL (2.5-4.6); POTASSIUM 4.1 mmol/L (3.5-5.0)
[2022-02-16 18:59] LABS: CREATININE,URINE 71.6 mg/dL; PROTEIN/CREATININE RATIO,URINE 0.2 (<=0.2)
== END 2022-02-16 15:07 | disposition home or self-care (01) ==
LOC: LAB.N 15:06
PROVIDERS: ATTEND Internal Medicine Nephrology
DX: N18.32 Chronic kidney disease, stage 3b (principal)
CPT/HCPCS: 36415; 80069; 82570; 84156

== ENCOUNTER 2022-09-04 14:25 | Emergency (ER) | payer MEDICARE ==
--- NOTE | 2022-09-04 15:16 | ED Physician Documentation ---
History of Present Illness - Stated complaint Stated Complaint: SOA - Chief complaint Chief Complaint: General - History obtained from History obtained from: Patient - History of Present Illness Pain level max: 0 Pain level now: 0 - Additonal information Additional information: Patient is a 77-year-old female who presents to the emergency department with chronic anemia. She states that she had an anaphylactic reaction to iron dextran complex in the past. She states that she has been receiving blood transfusions while trying to get approved for [facility]. She has a appointment next week in the [facility] for her first infusion. Increasing shortness of breath and weakness over the past several days. Received a blood transfusion here a few weeks ago. Nothing makes its better. Worse with exertion. No chest pain. No fevers. No cough. Review of Systems Ten Systems: 10 systems reviewed and negative Constitutional: denies: Fever, Chills Nose: denies: Rhinorrhea / runny nose, Congestion Respiratory: denies: Cough : denies: Dysuria Skin: denies: Rash Musculoskeletal: denies: Neck pain, Back pain PD PAST MEDICAL HISTORY - Past Medical History Cardiovascular: Hypertension Respiratory: None Neuro: None Endocrine/Autoimmune: None GI: None CADD DRAFTER: None : None HEENT: None Psych: Depression Musculoskeletal: None Derm: Herpes zoster Other Past Medical History: iron deficiency anemia - Past Surgical History Past Surgical History: Yes /CADD DRAFTER: Hysterectomy, Oophrectomy - Present Medications Home Medications: Ambulatory Orders Medication Instructions Recorded Confirmed lisinopriL [Prinivil] 10 mg PO DAILY #30 tablet 04/19/20 01/06/21 Omeprazole Magnesium 20 mg PO BID 12/30/20 01/06/21 Sertraline HCl 150 mg PO DAILY 12/30/20 01/06/21 buPROPion HCL [Bupropion HCl Sr] 150 mg PO BID 12/30/20 01/06/21 Acetaminophen [Tylenol] 650 mg PO TID 10 Days #30 tab 03/11/21 Calcitonin [Fortical] 1 sprays GHULAM DAILY 30 Days #1 03/11/21 bottle Lidocaine Viscous 2% [Xylocaine 5 ml PO Q4H PRN #100 ml 03/11/21 Viscous 2%] Ondansetron Odt [Zofran] 4 mg TL Q6H PRN #20 tablet 03/11/21 - Allergies Allergies/Adverse Reactions: Allergies Allergy/AdvReac Type Severity Reaction Status Date / Time adhesive Allergy Rash Verified 09/04/22 14:36 aripiprazole [From Abilify] Allergy Unknown Verified 09/04/22 14:36 iron dextran complex Allergy Anaphylaxis Verified 09/04/22 14:36 Penicillins Allergy Hives Verified 09/04/22 14:36 - Social History Does the pt smoke?: No Smoking Status: Never smoker Does the pt drink ETOH?: No Does the pt have substance abuse?: No - Immunizations Immunizations are current?: No Immunizations: TDAP >10years/unknown - POLST Patient has POLST: No PD ED PE NORMAL - Vitals Vital signs reviewed: Yes - General General: Alert and oriented X 3, No acute distress - HEENT HEENT: Moist mucous membranes - Neck Neck: Supple, no meningeal sign - Cardiac Cardiac: RRR, Strong equal pulses - Respiratory Respiratory: No respiratory distress, Clear bilaterally - Derm Derm: Warm and dry - Neuro Neuro: Alert and oriented X 3 Results - Vitals Vitals: Vital Signs - 24 hr 09/04/22 09/04/22 09/04/22 14:29 16:28 17:47 Temperature 36.3 C L 37.6 C Heart Rate 70 70 Heart Rate [ Monitoring electrodes] Respiratory 16 18 13 Rate Blood Pressure 162/65 H 158/82 H Blood Pressure 148/85 H [Left Brachial artery] O2 Saturation 99 99 97 09/04/22 09/04/22 09/04/22 17:58 18:06 18:07 Temperature 98.2 C H 36.6 C Heart Rate 69 Heart Rate [ 70 76 Monitoring electrodes] Respiratory 15 18 14 Rate Blood Pressure 148/85 H Blood Pressure 159/76 H 156/77 H [Left Brachial artery] O2 Saturation 99 98 96 09/04/22 09/04/22 09/04/22 18:28 19:46 20:12 Temperature 36.6 C Heart Rate 80 79 76 Heart Rate [ Monitoring electrodes] Respiratory 18 18 14 Rate Blood Pressure 159/76 H 153/61 H 156/77 H Blood Pressure [Left Brachial artery] O2 Saturation 96 100 96 Oxygen O2 Source Room air - Labs Labs: Laboratory Tests 09/04/22 09/04/22 09/04/22 15:08 15:08 15:08 WBC 5.1 RBC 2.60 L Hgb 6.9 L* Hct 24.5 L MCV 94.2 MCH 26.5 L MCHC 28.2 L RDW 16.0 H Plt Count 352 MPV 10.3 Neut # (Auto) 3.8 Lymph # (Auto) 0.7 L [place] # (Auto) 0.5 Eos # (Auto) 0.1 Baso # (Auto) 0.1 Absolute Nucleated RBC 0.00 Nucleated RBC % 0.0 Manual Slide Review Indicated WBC Morphology NORMAL APPEARANCE Platelet Estimate NORMAL (130-450,000) Platelet Morphology NORMAL APPEARANCE RBC Morph Micro Appear 1+ POLYCHROMASIA Sodium 137 Potassium 4.0 Chloride 102 Carbon Dioxide 30 Anion Gap 5.0 L BUN 25 H Creatinine 1.1 H Estimated GFR (MDRD) 48 L Glucose 105 H Calcium 9.2 Total Bilirubin 0.3 AST 17 ALT 12 Alkaline Phosphatase 53 Total Protein 6.2 L Albumin 3.9 Globulin 2.3 Albumin/Globulin Ratio 1.7 Blood Type O POSITIVE Antibody Screen NEGATIVE Crossmatch IS Only See Detail PD MEDICAL DECISION MAKING - ED course Complexity details: reviewed old records, reviewed results, re-evaluated patient, considered differential, d/w patient ED course: Patient received blood transfusion feels better. She will follow-up with her doctor for iron infusion next week. Patient counseled regarding signs and symptoms for which I believe and urgent re-evaluation would be necessary. Patient with good understanding of and agreement to plan and is comfortable going home at this time This document was made in part using voice recognition software. While efforts are made to proofread this document, sound alike and grammatical errors may occur. Departure - Departure Disposition: 01 Home, Self Care Clinical Impression: Symptomatic anemia Condition: Good Instructions: ED Anemia Type Not Specified Follow-Up: your,doctor in 1 week [Other] Comments: You were given a blood transfusion today. Please follow-up with your doctor for further care. Please return if you worsen. Discharge Date/Time: 09/04/22 20:13
[2022-09-04 15:20] LABS: BASOPHILS # (AUTO) 0.1 10^3/uL (0.0-0.1); BASOPHILS % (AUTO) 1.8 %; EOSINOPHILS # (AUTO) 0.1 10^3/uL (0.0-0.7); EOSINOPHILS % (AUTO) 1.9 %; HCT - HEMATOCRIT 24.5 % (37.0-47.0); LYMPHOCYTES # (AUTO) 0.7 10^3/uL (1.5-3.5); LYMPHOCYTES % (AUTO) 13.6 %; MEAN CORPUSCULAR HEMOGLOBIN 26.5 pg (27.0-31.0); MEAN CORPUSCULAR HGB CONC 28.2 g/dL (32.0-36.0); MEAN CORPUSCULAR VOLUME 94.2 fL (81.0-99.0); MEAN PLATELET VOLUME 10.3 fL (7.9-10.8); MONOCYTES # (AUTO) 0.5 10^3/uL (0.0-1.0); MONOCYTES % (AUTO) 9.1 %; NEUTROPHILS # (AUTO) 3.8 10^3/uL (1.5-6.6); NEUTROPHILS % (AUTO) 73.4 %; PLT - PLATELET COUNT 352 10^3/uL (130-450); WHITE BLOOD COUNT 5.1 x10^3/uL (4.8-10.8)
[2022-09-04 15:22] LABS: HGB - HEMOGLOBIN 6.9 g/dL (12.0-16.0)
[2022-09-04 15:28] LABS: ALBUMIN 3.9 g/dL (3.2-5.5); ALBUMIN/GLOBULIN RATIO 1.7 (1.0-2.2); BILIRUBIN,TOTAL 0.3 mg/dL (0.2-1.0); CALCIUM 9.2 mg/dL (8.5-10.3); CREATININE 1.1 mg/dL (0.4-1.0); TOTAL PROTEIN 6.2 g/dL (6.7-8.2)
[2022-09-04 15:47] LABS: PLATELET ESTIMATE, MANUAL NORMAL (130-450,000) (NORMAL); PLATELET MORPHOLOGY NORMAL APPEARANCE (NORMAL); SLIDE REVIEW? Indicated; WBC MORPHOLOGY (MULTIPLE) NORMAL APPEARANCE (NORMAL)
[2022-09-04 20:12] VITALS: BP 156/77
== END 2022-09-04 20:13 | disposition home or self-care (01) ==
LOC: ED 14:25
DX: D64.9 Anemia, unspecified (principal)
CPT/HCPCS: 36415; 36430; 80053; 85025; 86850; 86900; 86901; 86920; 99283; 99285; P9016

== ENCOUNTER 2022-12-19 14:47 | Outpatient (CLI) | payer MEDICARE | END 2022-12-19 14:48 | disposition critical access hospital (66) | LOC: EMS 14:47 | DX: R55 Syncope and collapse (principal); R53.1 Weakness; R20.0 Anesthesia of skin | CPT/HCPCS: A0425; A0429 ==

== ENCOUNTER 2022-12-19 15:03 | Emergency (ER) | payer MEDICARE ==
[2022-12-19 15:32] LABS: BASOPHILS # (AUTO) 0.1 10^3/uL (0.0-0.1); BASOPHILS % (AUTO) 1.8 %; EOSINOPHILS # (AUTO) 0.1 10^3/uL (0.0-0.7); EOSINOPHILS % (AUTO) 2.2 %; HCT - HEMATOCRIT 22.9 % (37.0-47.0); LYMPHOCYTES # (AUTO) 0.6 10^3/uL (1.5-3.5); LYMPHOCYTES % (AUTO) 11.3 %; MEAN CORPUSCULAR HEMOGLOBIN 25.8 pg (27.0-31.0); MEAN CORPUSCULAR HGB CONC 28.4 g/dL (32.0-36.0); MEAN CORPUSCULAR VOLUME 90.9 fL (81.0-99.0); MEAN PLATELET VOLUME 11.5 fL (7.9-10.8); MONOCYTES # (AUTO) 0.5 10^3/uL (0.0-1.0); MONOCYTES % (AUTO) 9.8 %; NEUTROPHILS # (AUTO) 4.1 10^3/uL (1.5-6.6); NEUTROPHILS % (AUTO) 74.5 %; PLT - PLATELET COUNT 361 10^3/uL (130-450); RED BLOOD COUNT 2.52 10^6/uL (4.20-5.40); WHITE BLOOD COUNT 5.5 x10^3/uL (4.8-10.8)
[2022-12-19 15:38] LABS: HGB - HEMOGLOBIN 6.5 g/dL (12.0-16.0)
[2022-12-19 15:50] LABS: ALBUMIN 3.6 g/dL (3.2-5.5); ALBUMIN/GLOBULIN RATIO 1.3 (1.0-2.2); BILIRUBIN,TOTAL 0.3 mg/dL (0.2-1.0); CALCIUM 9.4 mg/dL (8.5-10.3); CREATININE 1.3 mg/dL (0.4-1.0); TOTAL PROTEIN 6.3 g/dL (6.7-8.2)
--- NOTE | 2022-12-19 16:01 | ED Physician Documentation ---
History of Present Illness - Stated complaint Stated Complaint: NEAR SYNCOPE - Chief complaint Chief Complaint: Neuro - History obtained from History obtained from: Patient - History of Present Illness Timing: Today Pain level max: 0 Pain level now: 0 - Additonal information Additional information: Patient is a 77-year-old female who presents to the emergency department complaining of lightheadedness and dizziness today. Similar to the prior time she has needed a blood transfusion. Has chronic ongoing anemia, that is being worked up by hematology oncology. She sees Dr. Nance. She is scheduled for an iron infusion in 9 days. No chest pain. No shortness of breath. Feels better lying down. She states that she had a capsule endoscopy, but the prep was inadequate. 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: None : None HEENT: None Psych: Depression Musculoskeletal: None Derm: Herpes zoster - Past Surgical History Past Surgical History: Yes General: Appendectomy /PROJECT PLANNER: Hysterectomy, Oophrectomy - Present Medications Home Medications: Ambulatory Orders Medication Instructions Recorded Confirmed lisinopriL [Prinivil] 10 mg PO DAILY #30 tablet 04/19/20 09/29/22 Sertraline HCl 150 mg PO DAILY 12/30/20 09/29/22 buPROPion HCL [Bupropion HCl Sr] 150 mg PO BID 12/30/20 09/29/22 Acetaminophen [Tylenol] 650 mg PO TID 10 Days #30 tab 03/11/21 09/29/22 Calcitonin [Fortical] 1 sprays GHULAM DAILY 30 Days #1 03/11/21 09/29/22 bottle Lidocaine Viscous 2% [Xylocaine 5 ml PO Q4H PRN #100 ml 03/11/21 09/29/22 Viscous 2%] Ondansetron Odt [Zofran] 4 mg TL Q6H PRN #20 tablet 03/11/21 09/29/22 DULoxetine [Cymbalta] 60 mg PO DAILY 09/08/22 09/29/22 Omeprazole Magnesium [Prilosec] 20 mg PO BID 09/08/22 09/29/22 atenoloL [Tenormin] 25 mg PO DAILY 09/08/22 09/29/22 hydroCHLOROthiazide [Hydrodiuril] 25 mg PO DAILY 09/08/22 09/29/22 methocarbamoL [Methocarbamol] 750 mg PO DAILY 09/08/22 09/29/22 oxyCODONE [Roxicodone] 5 mg PO Q4-6H 09/08/22 09/29/22 - Allergies Allergies/Adverse Reactions: Allergies Allergy/AdvReac Type Severity Reaction Status Date / Time adhesive Allergy Rash Verified 12/19/22 15:10 aripiprazole [From Abilify] Allergy Unknown Verified 12/19/22 15:10 iron dextran complex Allergy Anaphylaxis Verified 12/19/22 15:10 Penicillins Allergy Hives Verified 12/19/22 15:10 - Social History Does the pt smoke?: No Smoking Status: Never smoker Does the pt drink ETOH?: No Does the pt have substance abuse?: No - Immunizations Immunizations are current?: No Immunizations: TDAP >10years/unknown - POLST Patient has POLST: No PD ED PE NORMAL - Vitals Vital signs reviewed: Yes - General General: Alert and oriented X 3, No acute distress, Other (Pale appearing) - HEENT HEENT: PERRL, Other (Pale conjunctiva) - Cardiac Cardiac: RRR, Strong equal pulses - Respiratory Respiratory: No respiratory distress, Clear bilaterally - Abdomen Abdomen: Soft, Non tender, Non distended - Derm Derm: Warm and dry - Extremities Extremities: No edema - Neuro Neuro: Alert and oriented X 3 - Psych Psych: Normal mood, Normal affect Results - Vitals Vitals: Vital Signs - 24 hr 12/19/22 12/19/22 12/19/22 15:10 15:15 16:55 Temperature 36.5 C 36.6 C Heart Rate 65 67 Heart Rate [ 70 Monitoring electrodes] Respiratory 18 16 22 Rate Blood Pressure 139/64 H 139/64 H Blood Pressure 162/85 H [Left Brachial artery] O2 Saturation 98 97 99 12/19/22 12/19/22 12/19/22 17:20 17:50 18:21 Temperature 36.7 C 36.6 C 37.0 C Heart Rate Heart Rate [ 67 67 73 Monitoring electrodes] Respiratory 15 19 15 Rate Blood Pressure Blood Pressure 148/67 H 152/63 H 136/53 H [Left Brachial artery] O2 Saturation 98 98 98 12/19/22 12/19/22 12/19/22 18:54 19:27 19:48 Temperature 36.5 C 36.6 C 36.7 C Heart Rate Heart Rate [ 76 77 72 Monitoring electrodes] Respiratory 24 18 24 Rate Blood Pressure Blood Pressure 130/60 127/66 139/92 H [Left Brachial artery] O2 Saturation 94 99 96 12/19/22 12/19/22 12/19/22 20:05 20:40 21:01 Temperature 37.0 C 36.9 C 36.6 C Heart Rate Heart Rate [ 69 61 70 Monitoring electrodes] Respiratory 19 19 19 Rate Blood Pressure Blood Pressure 128/64 128/60 136/69 H [Left Brachial artery] O2 Saturation 99 97 100 12/19/22 21:35 Temperature 36.4 C L Heart Rate Heart Rate [ 62 Monitoring electrodes] Respiratory 16 Rate Blood Pressure Blood Pressure 153/67 H [Left Brachial artery] O2 Saturation 98 Oxygen O2 Source Room air - EKG (time done) 1510 Rate: Rate (enter#) (63) Rhythm: NSR [place]: Normal Intervals: Normal ME QRS: Normal, LVH Ischemia: Normal ST segments - Labs Labs: Laboratory Tests 12/19/22 12/19/22 12/19/22 15:28 15:28 15:28 WBC 5.5 RBC 2.52 L Hgb 6.5 L* Hct 22.9 L MCV 90.9 MCH 25.8 L MCHC 28.4 L RDW 16.0 H Plt Count 361 MPV 11.5 H Neut # (Auto) 4.1 Lymph # (Auto) 0.6 L [place] # (Auto) 0.5 Eos # (Auto) 0.1 Baso # (Auto) 0.1 Absolute Nucleated RBC 0.00 Nucleated RBC % 0.0 Platelet Estimate NORMAL (130-450,000) Platelet Morphology NORMAL APPEARANCE RBC Morph Micro Appear 2+ HYPOCHROMASIA Sodium 138 Potassium 3.0 L Chloride 97 L Carbon Dioxide 29 Anion Gap 12.0 BUN 29 H Creatinine 1.3 H Estimated GFR (MDRD) 40 L Glucose 124 H Calcium 9.4 Total Bilirubin 0.3 AST 18 ALT 11 Alkaline Phosphatase 63 Troponin I High Sens 7.1 Total Protein 6.3 L Albumin 3.6 Globulin 2.7 Albumin/Globulin Ratio 1.3 Lipase 36 Blood Type Antibody Screen Crossmatch IS Only 12/19/22 15:48 WBC RBC Hgb Hct MCV MCH MCHC RDW Plt Count MPV Neut # (Auto) Lymph # (Auto) [place] # (Auto) Eos # (Auto) Baso # (Auto) Absolute Nucleated RBC Nucleated RBC % Platelet Estimate Platelet Morphology RBC Morph Micro Appear Sodium Potassium Chloride Carbon Dioxide Anion Gap BUN Creatinine Estimated GFR (MDRD) Glucose Calcium Total Bilirubin AST ALT Alkaline Phosphatase Troponin I High Sens Total Protein Albumin Globulin Albumin/Globulin Ratio Lipase Blood Type O POSITIVE Antibody Screen NEGATIVE Crossmatch IS Only See Detail PD Medical Decision Making - ED course Complexity details: reviewed results, re-evaluated patient, considered differential, d/w patient ED course: 77-year-old female with recurrent symptomatic anemia. She was given 2 units of packed red blood cells, symptoms resolved. Patient is well-appearing, nontoxic. Afebrile. This is a chronic ongoing issue for her. We will have her follow-up with her doctor for further care. No complications during the transfusion. Patient counseled regarding signs and symptoms for which I believe and urgent re-evaluation would be necessary. Patient with good understanding of and agreement to plan and is comfortable going home at this time This document was made in part using voice recognition software. While efforts are made to proofread this document, sound alike and grammatical errors may occur. Departure - Departure Disposition: 01 Home, Self Care Clinical Impression: Anemia Qualifiers: Anemia type: unspecified type Qualified Code(s): D64.9 - Anemia, unspecified Condition: Good Instructions: ED Anemia Type Not Specified Follow-Up: your,doctor in 1 week [Other] Comments: You received 2 units of blood today. Please follow-up with your doctor for further care. Please return if you worsen.
[2022-12-19 16:11] LABS: PLATELET ESTIMATE, MANUAL NORMAL (130-450,000) (NORMAL); PLATELET MORPHOLOGY NORMAL APPEARANCE (NORMAL)
[2022-12-19 21:36] VITALS: BP 153/67
== END 2022-12-19 22:30 | disposition home or self-care (01) ==
LOC: EDUNIT# → ED 15:03
DX: D64.9 Anemia, unspecified (principal); I10 Essential (primary) hypertension; Z79.899 Other long term (current) drug therapy
CPT/HCPCS: 36415; 36430; 80053; 83690; 84484; 85025; 86850; 86900; 86901; 86920; 93005; 99283; 99285; P9016

== ENCOUNTER 2023-04-24 02:08 | Outpatient (CLI) | payer MEDICARE | END 2023-04-24 02:09 | disposition short-term general hospital (02) | LOC: EMS 02:08 | DX: M25.472 Effusion, left ankle (principal); W18.49XA Other slipping, tripping and stumbling without falling, initial encounter; Y92.007 Garden or yard of unspecified non-institutional (private) residence as the place of occurrence of the external cause | CPT/HCPCS: A0425; A0429 ==

== ENCOUNTER 2023-06-21 01:13 | Outpatient (CLI) | payer MEDICARE | END 2023-06-21 23:59 | disposition critical access hospital (66) | LOC: EMS 01:13 | DX: R51.9 Headache, unspecified (principal); R11.2 Nausea with vomiting, unspecified; I10 Essential (primary) hypertension | CPT/HCPCS: A0425; A0429 ==

== ENCOUNTER 2023-06-21 01:24 | Emergency (ER) | payer MEDICARE ==
[2023-06-21] MEDS ORDERED: METOPROLOL TARTRATE 50 MG TABLET PO STA (01:30)
[2023-06-21] MEDS ORDERED: HYDROmorphone 1 MG/ML CARPUJECT IVP STA ×2 (01:30→02:40)
--- NOTE | 2023-06-21 01:32 | ED Physician Documentation ---
History of Present Illness - Stated complaint Stated Complaint: YBARRA/HIGH BP - Chief complaint Chief Complaint: Cardiac - History obtained from History obtained from: Patient, EMS - Additonal information Additional information: The patient comes to the emergency department chief complaint of throbbing headache and high blood pressures since around 10:00 yesterday morning. She does not really know why her blood pressure is high. She states she has been taking all of her medications as usual and that she is on medication for high blood pressure. She states that she has not been ill with anything. She has not had a head injury recently. The patient denies any nausea or vomiting. No chest pain or shortness of breath. No other complaints at this time. 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: None : None HEENT: None Psych: Depression Musculoskeletal: None Derm: Herpes zoster - Past Surgical History Past Surgical History: Yes General: Appendectomy /SYSTEMS AUDITOR: Hysterectomy, Oophrectomy - Present Medications Home Medications: Ambulatory Orders Medication Instructions Recorded Confirmed Lidocaine Viscous 2% [Xylocaine 5 ml PO Q4H PRN #100 ml 03/11/21 06/21/23 Viscous 2%] DULoxetine [Cymbalta] 60 mg PO DAILY 09/08/22 06/21/23 Omeprazole Magnesium [Prilosec] 20 mg PO BID 09/08/22 06/21/23 atenoloL [Tenormin] 25 mg PO BID 09/08/22 06/21/23 hydroCHLOROthiazide [Hydrodiuril] 25 mg PO DAILY 09/08/22 06/21/23 methocarbamoL [Methocarbamol] 750 mg PO BID PRN 09/08/22 06/21/23 Acetaminophen [Tylenol] 650 mg PO TID PRN 06/21/23 06/21/23 Albuterol Sulfate [Proair 90 mcg IH Q4HR PRN 06/21/23 06/21/23 Respiclick] Pravastatin [Pravachol] 10 mg PO HS 06/21/23 06/21/23 - Allergies Allergies/Adverse Reactions: Allergies Allergy/AdvReac Type Severity Reaction Status Date / Time adhesive Allergy Rash Verified 12/19/22 15:10 aripiprazole [From Abilify] Allergy Unknown Verified 12/19/22 15:10 iron dextran complex Allergy Anaphylaxis Verified 12/19/22 15:10 Penicillins Allergy Hives Verified 12/19/22 15:10 - Social History Does the pt smoke?: No Smoking Status: Never smoker Does the pt drink ETOH?: No Does the pt have substance abuse?: No - Immunizations Immunizations are current?: No Immunizations: TDAP >10years/unknown - POLST Patient has POLST: No PD ED PE NORMAL - Vitals Vital signs reviewed: Yes - General General: Alert and oriented X 3, No acute distress, Well developed/nourished - HEENT HEENT: Atraumatic, PERRL, EOMI, Moist mucous membranes - Neck Neck: Supple, no meningeal sign - Cardiac Cardiac: RRR, No murmur, Strong equal pulses - Respiratory Respiratory: No respiratory distress, Clear bilaterally - Abdomen Abdomen: Soft, Non tender, Non distended - Derm Derm: Normal color, Warm and dry, No rash - Extremities Extremities: No deformity, No edema - Neuro Neuro: Alert and oriented X 3 - Psych Psych: Normal mood, Normal affect Results - Vitals Vitals: Vital Signs - 24 hr 06/21/23 06/21/23 06/21/23 01:19 01:30 02:00 Temperature 36.8 C Heart Rate 67 66 66 Respiratory 16 17 17 Rate Blood Pressure 196/111 H 173/101 H 182/86 H O2 Saturation 95 94 94 06/21/23 02:30 Temperature Heart Rate 68 Respiratory 18 Rate Blood Pressure 189/82 H O2 Saturation 91 L Oxygen O2 Source Room air PD Medical Decision Making - ED course Complexity details: considered differential, d/w patient ED course: The patient was treated symptomatically in the emergency department with metoprolol orally and IV Dilaudid, Toradol, and Decadron. Her pressure did begin to come down and she reported feeling better. The patient was stable for discharge home. She was not in hypertensive emergency. I did advise her that she would need to keep track of her blood pressures and if she continues to have elevated readings and minor symptoms such as headache, she will need to talk to her primary doctor about whether she needs an adjustment in her medication regimen. Patient was agreeable to this plan. We have discussed symptomatic management at home as well as the usual indications for return. Departure - Departure Disposition: 01 Home, Self Care Clinical Impression: Hypertension Qualifiers: Hypertension type: unspecified Qualified Code(s): I10 - Essential (primary) hypertension Headache Qualifiers: Headache type: unspecified Headache chronicity pattern: acute headache Intractability: not intractable Qualified Code(s): R51.9 - Headache, unspecified Condition: Stable Instructions: ED Cephalgia Unspecified, ED HTN Established Comments: You have been treated for your headache and your high blood pressure today in the emergency department. Please continue to take your blood pressure medications, as directed. If your blood pressure is consistently running high during the day, you may try doubling the dose of your atenolol in the morning. If you come to the point of needing to do this though, it is going to be important for you to also follow-up with your primary doctor to discuss a more permanent approach to your blood pressure treatment. If you develop severe chest pain, shortness of breath, or strokelike symptoms, please return to the emergency department immediately. Forms: PCP List
[2023-06-21] MEDS ORDERED: DEXAMETHASONE 10 MG/ML VIAL IV STA (02:40)
[2023-06-21] MEDS ORDERED: KETOROLAC 60 MG/2 ML VIAL IM STA (02:40)
[2023-06-21 03:42] VITALS: O2SAT 92
[2023-06-21 06:23] VITALS: BP 151/89
== END 2023-06-21 06:25 | disposition home or self-care (01) ==
LOC: EDUNIT# → ED 01:24
DX: I10 Essential (primary) hypertension (principal); R51.9 Headache, unspecified
CPT/HCPCS: 96372; 96374; 96375; 99284; A9270; J1170

== ENCOUNTER 2023-10-26 15:06 | Emergency (ER) | payer MEDICARE ==
[2023-10-26 15:58] VITALS: BP 197/101; O2SAT 96
[2023-10-26 16:18] LABS: GLUCOSE, URINE (UA) NEGATIVE (NEGATIVE); KETONES,URINE (UA) TRACE mg/dL (NEGATIVE); LEUKOCYTE ESTERASE, URINE SMALL (NEGATIVE); NITRITE,URINE NEGATIVE (NEGATIVE); OCCULT BLOOD,URINE LARGE (NEGATIVE); PROTEIN,URINE 30 mg/dL (NEGATIVE); UROBILINOGEN,URINE 0.2 (NORMAL) E.U./dL (NORMAL)
[2023-10-26 16:21] LABS: BILIRUBIN,URINE NEGATIVE (NEGATIVE); CLARITY,URINE CLOUDY (CLEAR); ICTOTEST,URINE NEGATIVE
[2023-10-26 16:28] LABS: BACTERIA,URINE Rare /HPF (None Seen); RBC,URINE TNTC /HPF (0-5); SQUAMOUS EPITHELIAL CELL,UR FEW Squamous (<= Few)
--- NOTE | 2023-10-26 16:57 | ED Physician Documentation ---
PD HPI FEMALE - Stated complaint Stated Complaint: BLOOD - Chief complaint Chief Complaint: UTI - History obtained from History obtained from: Patient - History of Present Illness Timing - onset: How many days ago (3-4) Timing - duration: Days (3-4) Timing - details: Gradual onset, Still present Associated symptoms: Dysuria, Hematuria. No: Vaginal discharge, Genital sore/lesion Contributing factors: No: Exposed to STD Review of Systems Constitutional: denies: Fever, Chills GI: reports: Nausea. denies: Vomiting : reports: Dysuria PD PAST MEDICAL HISTORY - Past Medical History Past Medical History: Yes Cardiovascular: Hypertension Respiratory: None Neuro: None Endocrine/Autoimmune: None GI: None PRODUCT ADVISOR: None : Kidney stones HEENT: None Psych: Depression Musculoskeletal: None Derm: Herpes zoster - Past Surgical History Past Surgical History: Yes General: Appendectomy /PRODUCT ADVISOR: Hysterectomy, Oophrectomy - Present Medications Home Medications: Ambulatory Orders Medication Instructions Recorded Confirmed Lidocaine Viscous 2% [Xylocaine 5 ml PO Q4H PRN #100 ml 03/11/21 10/05/23 Viscous 2%] DULoxetine [Cymbalta] 60 mg PO DAILY 09/08/22 10/05/23 Omeprazole Magnesium [Prilosec] 20 mg PO BID 09/08/22 10/05/23 atenoloL [Tenormin] 25 mg PO BID 09/08/22 10/05/23 hydroCHLOROthiazide [Hydrodiuril] 25 mg PO DAILY 09/08/22 10/05/23 methocarbamoL [Methocarbamol] 750 mg PO BID PRN 09/08/22 10/05/23 Acetaminophen [Tylenol] 650 mg PO TID PRN 06/21/23 10/05/23 Albuterol Sulfate [Proair 90 mcg IH Q4HR PRN 06/21/23 10/05/23 Respiclick] Ciprofloxacin HCl [Cipro] 500 mg PO BID #14 tablet 10/26/23 - Allergies Allergies/Adverse Reactions: Allergies Allergy/AdvReac Type Severity Reaction Status Date / Time adhesive Allergy Rash Verified 10/26/23 15:49 aripiprazole [From Abilify] Allergy Unknown Verified 10/26/23 15:49 iron dextran complex Allergy Anaphylaxis Verified 10/26/23 15:49 Penicillins Allergy Hives Verified 10/26/23 15:49 - Social History Does the pt smoke?: No Smoking Status: Former smoker Does the pt drink ETOH?: No Does the pt have substance abuse?: No - Immunizations Immunizations are current?: No Immunizations: TDAP >10years/unknown - POLST Patient has POLST: No PD ED PE NORMAL - Vitals Vital signs reviewed: Yes - General General: Alert and oriented X 3, No acute distress, Well developed/nourished - Back Back: No CVA TTP Results - Vitals Vitals: Vital Signs - 24 hr 10/26/23 15:49 Temperature 36.8 C Heart Rate 88 Respiratory 16 Rate Blood Pressure 197/101 H O2 Saturation 96 Oxygen O2 Source Room air - Labs Labs: Laboratory Tests 10/26/23 16:11 Urine Color RED/BLOODY Urine Clarity CLOUDY Urine pH 7.0 Ur Specific [place] 1.020 Urine Protein 30 H Urine Glucose (UA) NEGATIVE Urine Ketones TRACE Urine Occult Blood LARGE H Urine Nitrite NEGATIVE Urine Bilirubin NEGATIVE Urine Urobilinogen 0.2 (NORMAL) Ur Leukocyte Esterase SMALL H Urine RBC TNTC H Urine WBC 4-5 Ur Squamous Epith Cells FEW Squamous Urine Bacteria Rare Ur Microscopic Review INDICATED Urine Culture Comments INDICATED PD Medical Decision Making - ED course Complexity details: considered differential (dysuria and hematuria with UA c/w UTI.), d/w patient Departure - Departure Disposition: 01 Home, Self Care Clinical Impression: UTI (urinary tract infection) Qualifiers: Urinary tract infection type: acute cystitis Hematuria presence: with hematuria Qualified Code(s): N30.01 - Acute cystitis with hematuria Condition: Stable Record reviewed to determine appropriate education?: Yes Instructions: ED UTI Cystitis Female Follow-Up: ELAINE ASENCIO PA [Primary Care Provider] - Wilton Preciado MD [Provider Admit Priv/Credential] - Prescriptions: Ciprofloxacin HCl [Cipro] 500 mg PO BID #14 tablet Comments: You do have signs of a bladder infection on your urine. Will treat with Cipro antibiotic twice daily for a week. We will do a culture on the urine and if it shows a bacteria resistant to this, then we will give you a call and change the antibiotic. This is only about 5% of the time. Meanwhile stay well-hydrated. Tylenol or ibuprofen for discomfort. It is fairly common to have blood in the urine in association with the infection which causes Ronis. The blood in the urine should decrease and stop over the next few days as the infection is treated. Follow-up with your primary care or urology if you have any persistent or recurrent blood in the urine beyond that. I sent your prescription to [facility] pharmacy. Forms: PCP List Discharge Date/Time: 10/26/23 18:12
[2023-10-26] MEDS ORDERED: CIPROFLOXACIN 250 MG TABLET PO STA (17:26)
== END 2023-10-26 18:12 | disposition home or self-care (01) ==
LOC: ED 15:06
DX: N30.01 Acute cystitis with hematuria (principal); I10 Essential (primary) hypertension; Z87.891 Personal history of nicotine dependence
CPT/HCPCS: 81001; 87086; 99283; A9270; 81003

== ENCOUNTER 2023-10-30 18:31 | Outpatient (CLI) | payer MEDICARE | END 2023-10-30 18:32 | disposition critical access hospital (66) | LOC: EMS 18:31 | DX: R55 Syncope and collapse (principal) | CPT/HCPCS: A0425; A0427 ==

== ENCOUNTER 2023-10-30 18:47 | Emergency (ER) | payer MEDICARE ==
--- NOTE | 2023-10-30 18:53 | ED Physician Documentation ---
PD HPI SYNCOPE - Stated complaint Stated Complaint: SYNCOPE, HIT HEAD - History obtained from History obtained from: Patient, EMS - Additional information Additional information: 78-year-old female with history of anemia with iron transfusions presents for near syncopal episode that occurred at [facility] just prior to arrival. Patient states she had not eaten since breakfast and while at the counter at [facility] she felt faint, her vision tunneling and she subsequently slid down the counter onto the ground. Patient denies loss of consciousness. Initial triage report states that patient hit her head, she is adamant that she did not hit her head, she was assisted to the ground and then laid down without any trauma. Patient received IV fluids in route, vital signs were reported to be in normal limits. Patient states she already feels back to baseline after receiving some IV fluids. Patient states that she has episodes similar to this every 4 to 6 months or so. This is a similar episode to her usual presentations. Review of Systems Constitutional: denies: Fever, Chills Cardiac: denies: Chest pain / pressure, Calf pain Respiratory: denies: Dyspnea, Cough GI: denies: Abdominal Pain, Nausea, Vomiting, Constipation, Diarrhea : denies: Dysuria, Frequency, Hesitancy Neurologic: reports: Syncope (near syncope). denies: Generalized weakness, Focal weakness PD PAST MEDICAL HISTORY - Past Medical History Cardiovascular: Hypertension Respiratory: None Neuro: None Endocrine/Autoimmune: None GI: None SHIFTMAN: None : Kidney stones HEENT: None Psych: Depression Musculoskeletal: None Derm: Herpes zoster - Past Surgical History Past Surgical History: Yes General: Appendectomy /SHIFTMAN: Hysterectomy, Oophrectomy - Present Medications Home Medications: Ambulatory Orders Medication Instructions Recorded Confirmed Lidocaine Viscous 2% [Xylocaine 5 ml PO Q4H PRN #100 ml 03/11/21 10/05/23 Viscous 2%] DULoxetine [Cymbalta] 60 mg PO DAILY 09/08/22 10/05/23 Omeprazole Magnesium [Prilosec] 20 mg PO BID 09/08/22 10/05/23 atenoloL [Tenormin] 25 mg PO BID 09/08/22 10/05/23 hydroCHLOROthiazide [Hydrodiuril] 25 mg PO DAILY 09/08/22 10/05/23 methocarbamoL [Methocarbamol] 750 mg PO BID PRN 09/08/22 10/05/23 Acetaminophen [Tylenol] 650 mg PO TID PRN 06/21/23 10/05/23 Albuterol Sulfate [Proair 90 mcg IH Q4HR PRN 06/21/23 10/05/23 Respiclick] Ciprofloxacin HCl [Cipro] 500 mg PO BID #14 tablet 10/26/23 - Allergies Allergies/Adverse Reactions: Allergies Allergy/AdvReac Type Severity Reaction Status Date / Time adhesive Allergy Rash Verified 10/26/23 15:49 aripiprazole [From Abilify] Allergy Unknown Verified 10/26/23 15:49 iron dextran complex Allergy Anaphylaxis Verified 10/26/23 15:49 Penicillins Allergy Hives Verified 10/26/23 15:49 - Social History Does the pt smoke?: No Smoking Status: Former smoker Does the pt drink ETOH?: No Does the pt have substance abuse?: No - Immunizations Immunizations are current?: No Immunizations: TDAP >10years/unknown - POLST Patient has POLST: No PD ED PE NORMAL - Vitals Vital signs reviewed: Yes - General General: Alert and oriented X 3, No acute distress, Well developed/nourished - HEENT HEENT: Atraumatic, PERRL - Neck Neck: Supple, no meningeal sign - Cardiac Cardiac: RRR, Strong equal pulses - Respiratory Respiratory: No respiratory distress, Clear bilaterally - Abdomen Abdomen: Soft, Non tender, Non distended - Derm Derm: Normal color, Warm and dry, No rash - Extremities Extremities: No deformity, No tenderness to palpate, Normal ROM s pain, No edema - Neuro Neuro: Alert and oriented X 3, brand inspector 2-12 intact, No motor deficit, Normal speech - Psych Psych: Normal mood, Normal affect Results - Vitals Vitals: Vital Signs - 24 hr 10/30/23 10/30/23 10/30/23 18:53 18:56 20:56 Temperature 36.4 C L 36.5 C Heart Rate 58 L 66 67 Respiratory 18 18 16 Rate Blood Pressure 149/67 H 148/68 H 170/84 H O2 Saturation 96 96 96 Oxygen O2 Source Room air - Labs Labs: Laboratory Tests 10/30/23 10/30/23 19:08 19:08 WBC 6.6 RBC 3.14 L Hgb 10.4 L Hct 31.7 L MCV 101.0 H MCH 33.1 H MCHC 32.8 RDW 14.2 Plt Count 274 MPV 11.0 H Neut # (Auto) 5.2 Lymph # (Auto) 0.5 L Hall # (Auto) 0.7 Eos # (Auto) 0.1 Baso # (Auto) 0.1 Absolute Nucleated RBC 0.00 Nucleated RBC % 0.0 Sodium 139 Potassium 3.1 L Chloride 103 Carbon Dioxide 29 Anion Gap 7.0 BUN 24 H Creatinine 1.1 Estimated GFR (MDRD) 48 L Glucose 119 H Calcium 8.4 L Total Bilirubin 0.2 AST 13 ALT 8 L Alkaline Phosphatase 61 Total Protein 5.1 L Albumin 3.3 Globulin 1.8 L Albumin/Globulin Ratio 1.8 PD Medical Decision Making - ED course Complexity details: reviewed old records, reviewed results, re-evaluated patient, considered differential, d/w patient ED course: Well-appearing patient with near syncopal episode similar to previous episodes that patient has had in the past. Patient states she has not eaten since earlier this morning and already feels better after receiving IV fluids. Patient's symptoms appear to be consistent with vasovagal syncope, she denies chest pain, shortness of breath, abdominal pain, other concerning symptoms prior to her near syncopal event. Again, patient adamantly denies that she hit her head and states that she slid to the floor and was assisted to the ground. EKG is normal sinus rhythm without concerning findings. Will order basic laboratory work to assess for other causes of near syncope in an elderly patient such as anemia given patient's history of anemia requiring iron transfusions. Laboratory work is reviewed, no acute derangements, patient's hemoglobin is at baseline. Patient ambulatory throughout the hallways without difficulty, she states she feels better and ready to go home. Patient counseled to maintain hydration, keep up her p.o. intake, and follow-up with her primary care physician. Departure - Departure Disposition: 01 Home, Self Care Clinical Impression: Vasovagal near-syncope Condition: Stable Instructions: ED Near Syncope Vasovagal Forms: PCP List Discharge Date/Time: 10/30/23 21:00
[2023-10-30 19:03] VITALS: O2SAT 96
[2023-10-30 19:14] LABS: BASOPHILS # (AUTO) 0.1 10^3/uL (0.0-0.1); BASOPHILS % (AUTO) 0.9 %; EOSINOPHILS # (AUTO) 0.1 10^3/uL (0.0-0.7); EOSINOPHILS % (AUTO) 0.9 %; HCT - HEMATOCRIT 31.7 % (37.0-47.0); HGB - HEMOGLOBIN 10.4 g/dL (12.0-16.0); LYMPHOCYTES # (AUTO) 0.5 10^3/uL (1.5-3.5); LYMPHOCYTES % (AUTO) 7.3 %; MEAN CORPUSCULAR HEMOGLOBIN 33.1 pg (27.0-31.0); MEAN CORPUSCULAR HGB CONC 32.8 g/dL (32.0-36.0); MONOCYTES # (AUTO) 0.7 10^3/uL (0.0-1.0); MONOCYTES % (AUTO) 10.8 %; NEUTROPHILS # (AUTO) 5.2 10^3/uL (1.5-6.6); NEUTROPHILS % (AUTO) 79.8 %; PLT - PLATELET COUNT 274 10^3/uL (130-450); RED BLOOD COUNT 3.14 10^6/uL (4.20-5.40); RED CELL DISTRIBUTION WIDTH 14.2 % (12.0-15.0); WHITE BLOOD COUNT 6.6 x10^3/uL (4.8-10.8)
[2023-10-30 19:26] LABS: ALBUMIN 3.3 g/dL (3.2-5.5); ALBUMIN/GLOBULIN RATIO 1.8 (1.0-2.2); BILIRUBIN,TOTAL 0.2 mg/dL (0.2-1.0); CALCIUM 8.4 mg/dL (8.5-10.3); CREATININE 1.1 mg/dL (0.6-1.3); POTASSIUM 3.1 mmol/L (3.5-4.5); TOTAL PROTEIN 5.1 g/dL (6.4-8.9)
[2023-10-30 21:19] VITALS: BP 170/84
== END 2023-10-30 21:00 | disposition home or self-care (01) ==
LOC: EDUNIT# → ED 18:47
DX: R55 Syncope and collapse (principal); I10 Essential (primary) hypertension; Z87.891 Personal history of nicotine dependence
CPT/HCPCS: 36415; 80053; 85025; 93005; 99283; 99284

== ENCOUNTER 2024-05-29 12:05 | Outpatient (CLI) | payer MEDICARE ==
--- NOTE | 2024-05-29 15:54 | XRAY Report ---
PROCEDURE: Hand 3+V BL INDICATIONS: JOINT PAIN TECHNIQUE: 3 views of the hand(s) acquired. COMPARISON: None. FINDINGS: Bones: No fractures or dislocations. No suspicious bony lesions. Decreased bone mineralization. Interphalangeal and first CMC joint space narrowing with osteophytosis. Findings are most prominent i n the bilateral fourth DIP and right second DIP. Soft tissues: No suspicious soft tissue calcifications or masses. IMPRESSION: No acute bony abnormality. Interphalangeal and first CMC osteoarthritis, slightly greater than expected for age. Reviewed by: Percy Gates MD on 05/29/2024 3:53 PM PDT Approved by: Percy Gates MD on 05/29/2024 3:53 PM PDT Station ID: [id number]
== END 2024-05-29 12:06 | disposition home or self-care (01) ==
LOC: DI 12:05
DX: M18.0 Bilateral primary osteoarthritis of first carpometacarpal joints (principal); M19.041 Primary osteoarthritis, right hand; M19.042 Primary osteoarthritis, left hand